=== PATIENT | male | born 1995 | race Caucasian/White ===

== ENCOUNTER → 2020-06-02 11:15 | Outpatient (CLI) | payer OTHER, SELFPAY | PROVIDERS: PCP Family Medicine; Referring Provider Family Medicine; Visit Provider Family Medicine | DX: Z20.828 Contact with and (suspected) exposure to other viral communicable diseases (principal) | CPT/HCPCS: 87635; U0003 ==

== ENCOUNTER 2021-08-23 09:05 | Outpatient (CLI) | payer OTHER, SELFPAY | END 2021-08-23 23:59 | disposition home or self-care (01) | PROVIDERS: PCP Family Medicine; Visit Provider Nurse Practitioner Family | DX: J06.9 Acute upper respiratory infection, unspecified (principal); Z20.822 Contact with and (suspected) exposure to COVID-19 | CPT/HCPCS: 87635; U0003; U0005 ==

== ENCOUNTER → 2022-05-21 | Outpatient (CLI) | payer OTHER, SELFPAY ==
--- NOTE | 2022-05-21 11:35 | RAD_ITS ---
STUDY: X-RAY CHEST REASON FOR EXAM: Male, 27 years old. Shortness of breath. TECHNIQUE: Frontal and lateral views of the chest. COMPARISON: None. FINDINGS: Low volume inspiration. Blunting of both costophrenic angles, left greater than right which may represent small effusions or pleural thickening. Normal size heart. Normal mediastinum and carlos. Normal visualized pulmonary arteries. Normal visualized aortic arch and descending thoracic aorta. Normal visualized thoracic spine. Normal visualized ribs, clavicles, and shoulders. There is no demonstrated abnormality of the visualized soft tissue structures of the upper abdomen. RAD/Chest PA and Lateral IMPRESSION: Low volume inspiration with probable small bilateral pleural effusions, left greater than right. No acute abnormality or active cardiopulmonary disease. Electronically Signed: Nelson Ohara, at 12:48 EST ,
[2022-05-21 12:19] LABS: Absolute Lymphocyte Count 1.37 X10^3/uL (0.83-4.51); Absolute Neutrophil Count 6.7 X10^3/uL (2.0-7.7); Basophil# 0.04 X10^3/uL; Basophil% 0.4 % (0-1); Eosinophil# 0.51 X10^3/uL; Eosinophils% 5.4 % (0-5); Hematocrit 42.6 % (40-54); Hemoglobin 14.3 g/dL (13.0-16.5); Lymphocyte # 1.37 X10^3/ul (0.83-4.51); Lymphocyte % 14.5 % (19-41); Mean Corp Hgb Conc 33.6 g/dL (32-36); Mean Corpuscular Hgb 29.7 pg (27.0-32.0); Mean Corpuscular Volume 88.4 fL (80-94); Monocyte# 0.77 X10^3/uL; Monocyte% 8.2 % (0-10); NRBC Flagged by Analyzer 0 % (0-5); Neutrophil # 6.67 X10^3/uL (2.7-7.7); Neutrophil % 70.9 % (47-70); Platelet Count 339 K/mm3 (150-450); RBC Distribution Width CV 12.2 % (11.6-14.6); RBC Distribution Width SD 39.7 fl (35.1-43.9); Red Blood Count 4.82 M/mm3 (4.6-6.2); White Blood Count 9.4 K/mm3 (4.4-11.0)
[2022-05-21 12:50] LABS: Anion Gap 7 (5-15); BUN 17 mg/dL (7-18); BUN/Creat Ratio 20.7 RATIO (10-20); Calcium,Total 9.3 mg/dL (8.5-10.1); Chloride 104 mmol/L (98-107); Creatinine, Serum 0.82 mg/dL (0.70-1.30); EST Glomerular Filtration Rate 118 mL/min (>60); Est Glom Filt Rate - Afr Amer 143 mL/min (>60); Glucose 92 mg/dL (74-106); Potassium 3.8 mmol/L (3.5-5.1); Sodium Level 139 mmol/L (136-145)
[2022-05-21 13:35] LABS: D-Dimer Quantitative (DVT/PE) 6.95 FEU/ug/m (0.27-0.49)
== END | disposition home or self-care (01) ==
LOC: MFPLAB 11:23 → MTRAD 11:35
PROVIDERS: PCP Family Medicine; Referring Provider Family Medicine; Visit Provider Family Medicine
DX: R06.02 Shortness of breath (principal)
CPT/HCPCS: 36415; 71046; 80048; 85025; 85379

== ENCOUNTER → 2022-05-21 | Outpatient (CLI) | payer OTHER, SELFPAY ==
--- NOTE | 2022-05-21 16:38 | CT_ITS ---
STUDY: CTA CHEST REASON FOR EXAM: Male, 27 years old. ELEVATED D DIMER RADIATION DOSAGE (If Supplied By Facility): CTDIvol = ( 14.86 ) mGy, DLP = ( 467.37 ) mGycm TECHNIQUE: The examination was performed with the intravenous administration of IV 100mL Isovue-[id number]. Post-processing of the angiographic images was performed, with multiplanar reformation and 3D reconstruction. Individualized dose optimization techniques were used for this CT. COMPARISON: Chest radiograph of the same date, 05/21/2022 FINDINGS: Tubes and lines: 1. No life-support noted. CTA: PULMONARY ARTERIES: There is normal configuration and contrast opacification of pulmonary outflow tract, main pulmonary arteries, segmental and intersegmental pulmonary arteries bilaterally without evidence of intraluminal filling defects. AORTIC ARCH: The aortic arch and descending aorta have normal configuration. No evidence of dissection or aneurysmal dilatation. Bovine origin of the carotid vessels. HEART: Cardiac contour is normal. No evidence pericardial effusion. CT CHEST: LUNGS: [Bibasilar atelectasis, areas of airspace consolidation in posterior costophrenic sulcus bilaterally, and bilateral effusions noted. Remaining pulmonary parenchyma is well aerated and clear. PLEURAL SPACES: Bilateral pleural fluid collections.. MEDIASTINUM AND LYMPH NODES: Unremarkable. No significant adenopathy. BONES: Unremarkable ABDOMEN: Within normal limits. Other: None IMPRESSIONS: 1. No CTA evidence of pulmonary embolism. 2. No CTA evidence of aortic aneurysm or dissection 3. Normal CT appearance of the heart and pericardium. 4. Bibasilar atelectasis, areas of airspace consolidation in posterior costophrenic sulcus bilaterally. Bilateral effusions noted. Electronically Signed: Unruly Jonas MD at 17:37 EST , CT/CTA Chest W/WO Contrast IMPRESSION: undefined
== END | disposition home or self-care (01) ==
PROVIDERS: PCP Family Medicine; Referring Provider Family Medicine; Visit Provider Family Medicine
DX: R79.89 Other specified abnormal findings of blood chemistry (principal)
CPT/HCPCS: 71275; Q9967; A4216

== ENCOUNTER → 2022-05-23 | Outpatient (CLI) | payer OTHER, SELFPAY ==
--- NOTE | 2022-05-23 15:07 | RAD_ITS ---
EXAM: XR CHEST, 2 VIEWS CLINICAL INDICATION: pleural effusion TECHNIQUE: Frontal and lateral views of the chest. This report was created using [employer] report generation technology. COMPARISON: 05/21/2022 FINDINGS: LUNGS AND PLEURAL SPACES: Blunting of the costophrenic angles which may represent small effusions. No pneumothorax. HEART: Unremarkable. Cardiac silhouette not enlarged. MEDIASTINUM: Central airways and mediastinal contour are unremarkable. BONES/JOINTS: See above. SOFT TISSUES: Unremarkable. RAD/Chest PA and Lateral IMPRESSION: No change in the appearance of the chest from reference exam. Electronically Signed: Eber Rodriguez MD at 16:11 EST ,
[2022-05-23 17:53] LABS: Absolute Neutrophil Count 15.9 X10^3/uL (2.0-7.7); Basophil# 0.03 X10^3/uL; Basophil% 0.2 % (0-1); Eosinophil# 0.02 X10^3/uL; Eosinophils% 0.1 % (0-5); Hematocrit 45.1 % (40-54); Hemoglobin 15.4 g/dL (13.0-16.5); Lymphocyte % 5.1 % (19-41); Mean Corp Hgb Conc 34.1 g/dL (32-36); Mean Corpuscular Hgb 29.7 pg (27.0-32.0); Mean Corpuscular Volume 87.1 fL (80-94); Mean Platelet Vol. 10.3 fl (6.2-12.0); Monocyte# 0.56 X10^3/uL; Monocyte% 3.2 % (0-10); NRBC Flagged by Analyzer 0 % (0-5); Neutrophil # 15.93 X10^3/uL (2.7-7.7); Neutrophil % 90.7 % (47-70); Platelet Count 460 K/mm3 (150-450); RBC Distribution Width CV 11.9 % (11.6-14.6); RBC Distribution Width SD 37.9 fl (35.1-43.9); Red Blood Count 5.18 M/mm3 (4.6-6.2); White Blood Count 17.6 K/mm3 (4.4-11.0)
[2022-05-23 18:19] LABS: Anion Gap 8 (5-15); BUN 21 mg/dL (7-18); BUN/Creat Ratio 24.9 RATIO (10-20); Calcium,Total 9.6 mg/dL (8.5-10.1); Chloride 104 mmol/L (98-107); Creatinine, Serum 0.84 mg/dL (0.70-1.30); EST Glomerular Filtration Rate 115 mL/min (>60); Est Glom Filt Rate - Afr Amer 139 mL/min (>60); Glucose 124 mg/dL (74-106); Potassium 4.7 mmol/L (3.5-5.1); Sodium Level 138 mmol/L (136-145)
== END | disposition home or self-care (01) ==
LOC: MTLAB 15:06
PROVIDERS: PCP Family Medicine; Referring Provider Family Medicine; Visit Provider Family Medicine
DX: J18.9 Pneumonia, unspecified organism (principal)
CPT/HCPCS: 36415; 71046; 80048; 85025

== ENCOUNTER → 2022-05-28 | Outpatient (CLI) | payer OTHER, SELFPAY ==
--- NOTE | 2022-05-28 15:03 | ECHOL_ITS ---
Reason For Study: CHEST PAIN Procedure This was a limited 2D transthoracic echocardiogram. Exam performed in department. Left Ventricle Normal LV size. Left ventricular systolic function is normal. The estimated ejection fraction is 55 %. No regional wall motion abnormalities noted. Right Ventricle Normal RV size. Normal systolic function. Atria Normal left atrium. Normal right atrium. Mitral Valve Normal mitral valve. Tricuspid Valve Normal tricuspid valve. Mild (1+) tricuspid valve insufficiency. Pulmonary artery systolic pressure is 25 mmHg. Aortic Valve Trisinus/trileaflet aortic valve. Pulmonic Valve Normal pulmonic valve. Great Vessels Normal aortic root. The pulmonary artery is normal size. Normal inferior vena cava. Pericardium/Pleural No pericardial effusion. MMode/2D Measurements & Calculations LVIDd: 4.7 cm IVSd: 0.81 cm Ao root diam: 3.2 cm LVIDs: 3.3 cm LVPWd: 0.67 cm RVDd: 3.4 cm FS: 28.6 % LAV(MOD-sp4): 25.0 ml LVAd ap4: 36.9 cm2 SV(MOD-sp4): 72.2 ml LVLd ap4: 9.2 cm EDV(MOD-sp4): 121.1 ml EDV(sp4-el): 125.8 ml LVAs ap4: 21.3 cm2 LVLs ap4: 7.7 cm ESV(MOD-sp4): 48.9 ml ESV(sp4-el): 50.1 ml EF(MOD-sp4): 59.6 % EF(sp4-el): 60.2 % SV(sp4-el): 75.7 ml LA A4 area: 12.2 cm2 LA dimension(2D): 3.6 cm RA A4 area: 11.9 cm2 Doppler Measurements & Calculations PA V2 max: 108.0 cm/sec TR max harjit: 237.8 cm/sec TR max P.6 mmHg ECHO/Echo, Limited Study Interpretation Summary Normal LV size. Left ventricular systolic function is normal. The estimated ejection fraction is 55 %. Pulmonary artery systolic pressure is 25 mmHg. Ordering Physician: Primo Victoria Referring Physician: Primo Victoria Performed By: Yary Moran RDCS
== END | disposition home or self-care (01) ==
LOC: CVS 15:02
PROVIDERS: PCP Family Medicine; Referring Provider Family Medicine; Visit Provider Family Medicine
DX: R07.9 Chest pain, unspecified (principal)
CPT/HCPCS: 93308

== ENCOUNTER → 2023-08-26 | Outpatient (CLI) | payer OTHER, SELFPAY ==
[2023-08-26 17:45] LABS: Absolute Lymphocyte Count 1.71 X10^3/uL (0.83-4.51); Absolute Neutrophil Count 4.6 X10^3/uL (2.0-7.7); Basophil# 0.03 X10^3/uL; Basophil% 0.4 % (0-1); Eosinophil# 0.27 X10^3/uL; Eosinophils% 3.8 % (0-5); Hematocrit 41.6 % (40-54); Hemoglobin 14.2 g/dL (13.0-16.5); Lymphocyte # 1.71 X10^3/ul (0.83-4.51); Lymphocyte % 23.9 % (19-41); Mean Corp Hgb Conc 34.1 g/dL (32-36); Mean Corpuscular Hgb 30.1 pg (27.0-32.0); Mean Corpuscular Volume 88.3 fL (80-94); Mean Platelet Vol. 10.6 fl (6.2-12.0); Monocyte# 0.49 X10^3/uL; Monocyte% 6.9 % (0-10); NRBC Flagged by Analyzer 0 % (0-5); Neutrophil # 4.63 X10^3/uL (2.7-7.7); Neutrophil % 64.7 % (47-70); Platelet Count 263 K/mm3 (150-450); RBC Distribution Width CV 13.1 % (11.6-14.6); RBC Distribution Width SD 42.3 fl (35.1-43.9); Red Blood Count 4.71 M/mm3 (4.6-6.2); White Blood Count 7.2 K/mm3 (4.4-11.0)
[2023-08-26 18:20] LABS: ALB/GLOB Ratio 1.5 RATIO (0.9-2.4); AST(SGOT) 16 U/L (15-37); Alanine Aminotransfer ALT/SGPT 36 U/L (16-61); Albumin, Serum 4.4 g/dL (3.2-5.0); Alkaline Phosphatase 60 U/L (45-117); Anion Gap 4 (5-15); BUN 11 mg/dL (7-18); BUN/Creat Ratio 11.6 RATIO (10-20); Calcium,Total 9.2 mg/dL (8.5-10.1); Chloride 106 mmol/L (98-107); Creatinine, Serum 0.95 mg/dL (0.70-1.30); EST Glomerular Filtration Rate 99 mL/min (>60); Est Glom Filt Rate - Afr Amer 120 mL/min (>60); Glucose 94 mg/dL (74-106); Potassium 3.9 mmol/L (3.5-5.1); Protein, Total 7.4 g/dL (6.4-8.2); Sodium Level 139 mmol/L (136-145); Thyroid Stim Hormone (TSH) 1.32 uIU/mL (0.358-3.74)
--- OUTSIDE RECORDS SUMMARY | 2023-08-26 23:40 | XMS RPT_ITS | CCD ---
Author Name Unknown Address [address] [place] [address] Organization [facility] Care Team Providers Care Draw Fire Operator Name Role Phone Jhonatan Victoria MD Primary Care Provider [phone] JHONATAN VICTORIA Primary Care Unavailable BRIT ZAMBRANO Attending Unavailable JHONATAN VICTORIA Primary Care Unavailable JHONATAN VICTORIA Primary Care Unavailable BRIT ZAMBRANO Attending Unavailable Jhonatan Victoria MD Primary Care Provider Medications Current Medications Medication Drug Class(es) Dates Sig (Normalized) Sig (Original) amoxicillin 875 mg oral tablet (1 source) Penicillin-class Antibacterial Start: 07-05-2022 End: 07-15-2022 take 1 tablet by mouth twice daily amoxicillin (AMOXIL) 875 mg tablet Indications: Strep throat Take 1 tablet by mouth twice daily for 10 days. 20 tablet 0 07/05/2022 07/15/2022 Active Completed/Discontinued Medications Medication Drug Class(es) Dates Sig (Normalized) Sig (Original) acetaminophen 325 mg oral tablet (2 sources) Start: 11-04-2006 acetaminophen (TYLENOL) 325 mg ORAL Tab 1-2 tablets as needed for headaches 0 11/04/2006 Active Problems Active Problems Problem Classification Problem Date Documented Da te Episodic/Chronic Allergic reactions (2 sources) Unspecified contact dermatitis, unspecified cause; Translations: [Contact dermatitis] Onset: 11-30-2022 Episodic Other and unspecified benign neoplasm (2 sources) Benign neoplasm of brain; Translations: [Benign neoplasm of brain, unspecified] Onset: 12-08-2007 12-08-2007 Chronic Other upper respiratory infections (2 sources) Chronic sphenoidal sinusitis; Translations: [Chronic sphenoidal sinusitis] Onset: 03-06-2007 03-06-2007 Chronic Past or Other Problems Problem Classification Problem Date Documented Date Episodic/Chronic Other upper respiratory infections (3 sources) Streptococcal sore throat; Translations: [Streptococcal pharyngitis] Onset: 04-06-2022 Episodic Results Test Name Value Interpretation Reference Range Facil ity Vital Signs Date Time Vital Sign Value Performing Clinician Suma samuel 11-30-2022 18:25-0400 Body temperature 97.9 [degF] Brit Zambrano MD Work Phone: [facility] 11-30-2022 18:25-0400 Body weight 95.25 kg Brit Zambrano MD Work Phone: [facility] 11-30-2022 18:25-0400 Diastolic blood pressure 70 mm[Hg] Brit Zambrano MD Work Phone: [facility] 11-30-2022 18:25-0400 Heart rate 65 /min Brit Zambrano MD Work Phone: [facility] 11-30-2022 18:25-0400 Respiratory rate 20 /min Brit Zambrano MD Work Phone: [facility] 11-30-2022 18:25-0400 SaO2% (BldA) [Mass fraction] 98 % Brit Zambrano MD Work Phone: [facility] 11-30-2022 18:25-0400 Systolic blood pressure 127 mm[Hg] Brit Zambrano MD Work Phone: [facility] 07-05-2022 19:17-0500 Body temperature 98.8 [degF] Nita Balderrama DO Work Phone: [facility] 07-05-2022 19:17-0500 Body weight 99.79 kg Nita Tacos DO Work Phone: [facility] 07-05-2022 19:17-0500 Diastolic blood pressure 85 mm[Hg] Nita Balderrama DO Work Phone: [facility] 07-05-2022 19:17-0500 Heart rate 78 /min Nita Balderrama DO Work Phone: [facility] 07-05-2022 19:17-0500 Respiratory rate 18 /min Nita Balderrama DO Work Phone: [facility] 07-05-2022 19:17-0500 SaO2% (BldA) [Mass fraction] 99 % Nita Balderrama DO Work Phone: [facility] 07-05-2022 19:17-0500 Systolic blood pressure 142 mm[Hg] Nita Balderrama DO Work Phone: [facility] Encounters Encounter Date Encounter Type Care Provider Facility Start: 11-30-2022 End: 11-30-2022 ambulatory JHONATAN Soni [facility] Facility:[id number] Start: 11-30-2022 End: 11-30-2022 Office outpatient visit 15 minutes Brit Zambrano MD Work Phone: [facility] Plan of Treatment Date Care Activity Detail Author Start: 03-01-2023 Influenza vaccination INFLUENZA (Sea son Ended) [facility] Start: 07-01-2022 DEPRESSION ASSESSMENT DEPRESSION ASS ESSMENT [facility] Start: 03-01-2022 Influenza vaccination INFLUENZA (#1) [facility] Start: 01-12-2021 COVID-19 VACCINE (3 - Booster for Moderna series) COVID-19 VACCINE (3 - Booster for Moderna series) [facility] Start: 2013 Urine microalbumin profile DTAP,TDAP ,TD (1 - Tdap) [facility] Start: 01-06-2012 HEPATITIS C SCREENING HEPATITIS C CHARISMA [place] [facility] Start: 01-06-2012 HIV SCREENING HIV SCREENING [facility] Start: 1994 HEPATITIS B (1 of 3 - 3-dose series) HEPATITIS B (1 of 3 - 3-dose series) [facility] Payers Date Payer Category Payer Unknown [employer] P[employer] [id number] 2022-Present [phone] [address] [place] [address] PPO [id number] 2022 Unknown [id number] Social History Date Type Detail Facility Start: 04-06-2022 Tobacco smoking stat us ARIS Never smoked tobacco [facility] Start: 04-06-2022 Tobacco use and exposure Smoke less tobacco non-user [facility] Start: 07-05-2022 End: 11-30-2022 Alcohol intake Current non-drinker of alcohol (finding) [facility] Start: 1995 Sex Assigned At Not on file [facility] Progress note 11-30-2022 Note Date & Type Note Facility 11-30-2022 Note HNO ID: [id number] Author: Brit Zambrano MD Service: ? Author Type: Physician Type: Progress Notes Filed: 11/30/2022 6:41 PM Note Text: Darlene Delgado is a 27 year old MALE who presents with Rash (On feet/ankles x 4 days) 27 years old male present with rash on both lower leg and foot for the last 4 days Denies being exposed to anything new. No new detergent socks or shoes or any clothing Did not go into the schneider working the yard He has moderate itching, he has been using qbat-klp-jsbwsbz cortisone cream which is slightly helping No rash anywhere else No other problem at this visit History reviewed. No pertinent past medical history. ACTIVE PROBLEM LIST Chronic Sphenoidal Sinusitis Benign Neoplasm of Brain (Hcc) Current Outpatient Medications Medication Sig Dispense Refill amitriptyline (ELAVIL) 50 mg tablet TAKE 1 TABLET BY MOUTH AT BEDTIME TO PREVENT HEADACHES FLUoxetine (PROZAC) 20 mg capsule TAKE 1 (ONE) CAPSULE BY MOUTH DAILY 90 capsule 3 MOMETASONE 50 MCG/ACTUATION NASAL SPRAY [place] twice in each nostril once daily. 0 acetaminophen (TYLENOL) 325 mg ORAL Tab 1-2 tablets as needed for headaches 0 No current facility-administered medications for this visit. Social History Tobacco Use Smoking status: Never Smokeless tobacco: Never Vaping Use Vaping Use: Never used Substance Use Topics Alcohol use: No Drug use: Never Alcohol Use: No Tobacco Use: Never History reviewed. No pertinent family history. Review of Systems Skin: Positive for itching and rash. All other systems reviewed and are negative. BP 127/70 Pulse 65 Temp 97.9 Resp 20 Wt 210 lb (95.3kg) SpO2 98% Physical Exam Vitals reviewed. Constitutional: General: He is not in acute distress. Appearance: Normal appearance. He is not ill-appearing or toxic-appearing. HENT: Nose: Nose normal. Mouth/Throat: Mouth: Mucous membranes are moist. Pharynx: Oropharynx is clear. Cardiovascular: Rate and Rhythm: Normal rate and regular rhythm. Heart sounds: Normal heart sounds. Pulmonary: Effort: Pulmonary effort is normal. Breath sounds: Normal breath sounds. Skin: Findings: Erythema and rash present. Comments: Had a tiny erythematous dots on both lower extremities from mid leg down to the foot No blisters or pustules no skin excoriation speedy on pressure. Clinically appears to be very nonspecific rash Nontender. Neurological: Mental Status: He is alert. ASSESSMENT/PLAN: 1. Contact dermatitis, unspecified contact dermatitis type, unspecified trigger - ICD9: 692.9, ICD10: L25.9 - METHYLPREDNISOLONE 4 MG TABLETS IN A DOSE PACK Benadryl, may continue desq-ylt-vgzfela cortisone cream F/u PCP for evaluation and care or see microelectronics engineer Explained details Brit Zambrano MD [facility] Instructions 11-30-2022 Patient Instructions Note Date & Type Note Facility 11-30-2022 Instructions Brit Zambrano MD - 11/30/2022 6:40 PM EDT Benadryl, may continue svcp-khi-xdwmjqt cortisone cream F/u PCP for evaluation and care or see microelectronics engineer Explained details documented in this encounter [facility] History of Present illness Narrative 11-30-2022 Brit Zambrano MD - 11/30/2022 6:34 PM EDT Note Date & Type Note Facility 11-30-2022 History of Presen t illness Narrative Darlene Delgado is a 27 year old MALE who presents with Rash (On feet/ankles x 4 days) 27 years old male present with rash on both lower leg and foot for the last 4 days Denies being exposed to anything new. No new detergent socks or shoes or any clothing Did not go into the schneider working the yard He has moderate itching, he has been using fjxh-eos-didtfwk cortisone cream which is slightly helping No rash anywhere else No other problem at this visit History reviewed. No pertinent past medical history. ACTIVE PROBLEM LIST Chronic Sphenoidal Sinusitis Benign Neoplasm of Brain (Hcc) Current Outpatient Medications Medication Sig Dispense Refill amitriptyline (ELAVIL) 50 mg tablet TAKE 1 TABLET BY MOUTH AT BEDTIME TO PREVENT HEADACHES FLUoxetine (PROZAC) 20 mg capsule TAKE 1 (ONE) CAPSULE BY MOUTH DAILY 90 capsule 3 MOMETASONE 50 MCG/ACTUATION NASAL SPRAY [place] twice in each nostril once daily. 0 acetaminophen (TYLENOL) 325 mg ORAL Tab 1-2 tablets as needed for headaches 0 No current facility-administered medications for this visit. Social History Tobacco Use Smoking status: Never Smokeless tobacco: Never Vaping Use Vaping Use: Never used Substance Use Topics Alcohol use: No Drug use: Never Alcohol Use: No Tobacco Use: Never History reviewed. No pertinent family history. Review of Systems Skin: Positive for itching and rash. All other systems reviewed and are negative. BP 127/70 Pulse 65 Temp 97.9 Resp 20 Wt 210 lb (95.3kg) SpO2 98% Physical Exam Vitals reviewed. Constitutional: General: He is not in acute distress. Appearance: Normal appearance. He is not ill-appearing or toxic-appearing. HENT: Nose: Nose normal. Mouth/Throat: Mouth: Mucous membranes are moist. Pharynx: Oropharynx is clear. Cardiovascular: Rate and Rhythm: Normal rate and regular rhythm. Heart sounds: Normal heart sounds. Pulmonary: Effort: Pulmonary effort is normal. Breath sounds: Normal breath sounds. Skin: Findings: Erythema and rash present. Comments: Had a tiny erythematous dots on both lower extremities from mid leg down to the foot No blisters or pustules no skin excoriation speedy on pressure. Clinically appears to be very nonspecific rash Nontender. Neurological: Mental Status: He is alert. ASSESSMENT/PLAN: 1. Contact dermatitis, unspecified contact dermatitis type, unspecified trigger - ICD9: 692.9, ICD10: L25.9 - METHYLPREDNISOLONE 4 MG TABLETS IN A DOSE PACK Benadryl, may continue qevw-top-rrbgpsw cortisone cream F/u PCP for evaluation and care or see microelectronics engineer Explained details Pratheep Pawa, MD documented in this encounter [facility] Progress note 07-05-2022 Note Date & Type Note Facility 07-05-2022 Note HNO ID: [id number] Author: Nita Balderrama, DO Service: ? Author Type: Physician Type: Progress Notes Filed: 07/05/2022 8:00 PM Note Text: Darlene Delgado is a 27 year old MALE who presents with Cough and Sore Throat (6 days) HPI History reviewed. No pertinent past medical history. ACTIVE PROBLEM LIST Chronic Sphenoidal Sinusitis Benign Neoplasm of Brain (Hcc) Current Outpatient Medications Medication Sig Dispense Refill amoxicillin (AMOXIL) 875 mg tablet Take 1 tablet by mouth twice daily for 10 days. 20 tablet 0 FLUoxetine (PROZAC) 20 mg capsule TAKE 1 (ONE) CAPSULE BY MOUTH DAILY 90 capsule 3 AMITRIPTYLINE 25 MG TAB three by mouth at bedtime 0 MOMETASONE 50 MCG/ACTUATION NASAL SPRAY [place] twice in each nostril once daily. 0 acetaminophen (TYLENOL) 325 mg ORAL Tab 1-2 tablets as needed for headaches 0 No current facility-administered medications for this visit. Social History Tobacco Use Smoking status: Never Smokeless tobacco: Never Vaping Use Vaping Use: Never used Substance Use Topics Alcohol use: No Drug use: Never Alcohol Use: No Tobacco Use: Never History reviewed. No pertinent family history. Review of Systems HENT: Positive for sore throat. All other systems reviewed and are negative. BP 142/85 Pulse 78 Temp 98.8 Resp 18 Wt 220 lb (99.8kg) SpO2 99% Physical Exam Vitals and nursing note reviewed. Constitutional: Appearance: Normal appearance. HENT: Nose: Congestion and rhinorrhea present. Mouth/Throat: Pharynx: Oropharyngeal exudate and posterior oropharyngeal erythema present. Cardiovascular: Rate and Rhythm: Normal rate and regular rhythm. Pulses: Normal pulses. Heart sounds: Normal heart sounds. Pulmonary: Effort: Pulmonary effort is normal. Breath sounds: Normal breath sounds. Skin: General: Skin is warm. Capillary Refill: Capillary refill takes less than 2 seconds. Neurological: General: No focal deficit present. Mental Status: He is alert. ASSESSMENT/PLAN: 1. Strep throat - ICD9: 034.0, ICD10: J02.0 - suspect strep - Discussed supportive care treatment with fluids, rest and analgesia. - AMOXICILLIN 875 MG TABLET Nita Mireille DubonBalderrama [facility] History of Present illness Narrative 07-05-2022 Nita DiasDO gisel - 07/05/2022 7:58 PM EST Note Date & Type Note Facility 07-05-2022 History of Presen t illness Narrative Darlene Delgado is a 27 year old MALE who presents with Cough and Sore Throat (6 days) HPI History reviewed. No pertinent past medical history. ACTIVE PROBLEM LIST Chronic Sphenoidal Sinusitis Benign Neoplasm of Brain (Hcc) Current Outpatient Medications Medication Sig Dispense Refill amoxicillin (AMOXIL) 875 mg tablet Take 1 tablet by mouth twice daily for 10 days. 20 tablet 0 FLUoxetine (PROZAC) 20 mg capsule TAKE 1 (ONE) CAPSULE BY MOUTH DAILY 90 capsule 3 AMITRIPTYLINE 25 MG TAB three by mouth at bedtime 0 MOMETASONE 50 MCG/ACTUATION NASAL SPRAY [place] twice in each nostril once daily. 0 acetaminophen (TYLENOL) 325 mg ORAL Tab 1-2 tablets as needed for headaches 0 No current facility-administered medications for this visit. Social History Tobacco Use Smoking status: Never Smokeless tobacco: Never Vaping Use Vaping Use: Never used Substance Use Topics Alcohol use: No Drug use: Never Alcohol Use: No Tobacco Use: Never History reviewed. No pertinent family history. Review of Systems HENT: Positive for sore throat. All other systems reviewed and are negative. BP 142/85 Pulse 78 Temp 98.8 Resp 18 Wt 220 lb (99.8kg) SpO2 99% Physical Exam Vitals and nursing note reviewed. Constitutional: Appearance: Normal appearance. HENT: Nose: Congestion and rhinorrhea present. Mouth/Throat: Pharynx: Oropharyngeal exudate and posterior oropharyngeal erythema present. Cardiovascular: Rate and Rhythm: Normal rate and regular rhythm. Pulses: Normal pulses. Heart sounds: Normal heart sounds. Pulmonary: Effort: Pulmonary effort is normal. Breath sounds: Normal breath sounds. Skin: General: Skin is warm. Capillary Refill: Capillary refill takes less than 2 seconds. Neurological: General: No focal deficit present. Mental Status: He is alert. ASSESSMENT/PLAN: 1. Strep throat - ICD9: 034.0, ICD10: J02.0 - suspect strep - Discussed supportive care treatment with fluids, rest and analgesia. - AMOXICILLIN 875 MG TABLET Nita Balderrama documented in this encounter [facility] Progress note 04-06-2022 Note Date & Type Note Facility 04-06-2022 Note HNO ID: [id number] Author: Brit Zambrano MD Service: ? Author Type: Physician Type: Progress Notes Filed: 04/06/2022 6:22 PM Note Text: Darlene Delgado is a 27 year old MALE who presents with Cough and Sore Throat (4 days) Cough congestion sinus pressure headache for the last 5 days Symptom increasing, also having sore throat Feel lots of drainage Flhw-hjd-ddfhckw medicine is not helping Sometimes feels some discomfort in the chest No vomiting or diarrhea History reviewed. No pertinent past medical history. ACTIVE PROBLEM LIST Chronic Sphenoidal Sinusitis Benign Neoplasm of Brain (Hcc) Current Outpatient Medications Medication Sig Dispense Refill AMITRIPTYLINE 25 MG TAB three by mouth at bedtime 0 MOMETASONE 50 MCG/ACTUATION NASAL SPRAY [place] twice in each nostril once daily. 0 olopatadine (PATANOL) 0.1 % OPHTHALMIC Drop 1 drop twice daily as needed 0 acetaminophen (TYLENOL) 325 mg ORAL Tab 1-2 tablets as needed for headaches 0 FLUoxetine (PROZAC) 20 mg capsule TAKE 1 (ONE) CAPSULE BY MOUTH DAILY 90 capsule 3 amitriptyline (ELAVIL) 50 mg tablet TAKE 1 TABLET AT BEDTIME TO PREVENT HEADACHES 90 tablet 3 No current facility-administered medications for this visit. Social History Tobacco Use Smoking status: Never Smokeless tobacco: Never Vaping Use Vaping Use: Never used Substance Use Topics Alcohol use: No Drug use: Never Alcohol Use: No Tobacco Use: Never History reviewed. No pertinent family history. Review of Systems Constitutional: Negative. HENT: Positive for congestion, sinus pain and sore throat. Eyes: Negative. Respiratory: Positive for cough. Cardiovascular: Negative. Gastrointestinal: Negative. BP 140/73 Pulse 94 Temp 99.4 Resp 18 Wt 220 lb (99.8kg) SpO2 98% Physical Exam Vitals reviewed. Constitutional: General: He is not in acute distress. Appearance: Normal appearance. He is not ill-appearing or toxic-appearing. Comments: Looked tired HENT: Nose: Congestion present. Comments: Moderate paranasal sinuses tenderness Mouth/Throat: Mouth: Mucous membranes are moist. Pharynx: Oropharynx is clear. Comments: Moderate postnasal drip Cardiovascular: Rate and Rhythm: Normal rate and regular rhythm. Heart sounds: Normal heart sounds. Pulmonary: Effort: Pulmonary effort is normal. Breath sounds: Normal breath sounds. Musculoskeletal: Cervical back: Normal range of motion and neck supple. No rigidity. Lymphadenopathy: Cervical: No cervical adenopathy. Neurological: Mental Status: He is alert. ASSESSMENT/PLAN: 1. Acute maxillary sinusitis, recurrence not specified - ICD9: 461.0, ICD10: J01.00 Gargle, lozenges OTC med as needed Recheck if any change F/u PCP for further evaluation and care explained details Brit Zambrano MD [facility] Evaluation note Note Date & Type Note Facility documented in this encounter [facility] Evaluation note Note Date & Type Note Facility documented in this encounter [facility] Summary Purpose Family History No Family History Records FoundNo Family History Records FoundNo Family History Records Found Advance Directives No Advanced Directives Records FoundNo Advanced Directives Records FoundNo Advanced Directives Records Found Additional Source Comments (unrecognized sect ion and content) No Status Records FoundNo Status Records FoundNo Status Records Found INFORMATION SOURCE (unrecogn ized section and content) DATE CREATED AUTHOR AUTHOR'S ORGANIZ ATION 12/08/2022 [facility] DATE CREATED AUTHOR AUTHOR'S ORGANIZ ATION 12/08/2022 [facility] Source Comments (unrecognize d section and content) In the event this informatio n is protected by the Federal Confidentiality of Alcohol and Drug Abuse Patient Records regulations: The Federal rules restrict any use of the information to criminally investigate or prosecute any alcohol or drug abuse patient.[facility] the event this information is protected by the Federal Confidentiality of Alcohol and Drug Abuse Patient Records regulations: The Federal rules restrict any use of the information to criminally investigate or prosecute any alcohol or drug abuse patient.[facility] Reason for Visit (unrecogniz ed section and content) Reason Comments Rash On feet/ankles x 4 d ays Care Teams (unrecognized sec tion and content) Draw Fire Operator Relationship Specialty Start Date End Date Jhonatan Victoria MD PCP - General 09/19/09 FOR RECORDS PERTAINING TO PATIENTS WHO ARE OR HAVE BEEN ENROLLED IN A CHEMICAL DEPENDENCY/SUBSTANCEABUSE PROGRAM, SOME INFORMATION MAY BE OMITTED. This clinical summary was aggregated from multiple sources. Caution should be exercised in using it in the provision of clinical care. This summary normalizes information from multiple sources, and as a consequence, information in this document may materially change the coding, format and clinical context of patient data. In addition, data may be omitted in some cases. CLINICAL DECISIONS SHOULD BE BASED ON THE PRIMARY CLINICAL RECORDS. [employer] [facility] provides no warranty or guarantee of the accuracy or completeness of information in this document.
== END | disposition home or self-care (01) ==
LOC: MFPLAB 15:36
PROVIDERS: PCP Family Medicine; Visit Provider Family Medicine
DX: N46.9 Male infertility, unspecified (principal)
CPT/HCPCS: 36415; 80053; 84403; 84443; 85025

== ENCOUNTER → 2024-09-07 | Outpatient (CLI) | payer OTHER, SELFPAY ==
[2024-09-07 13:29] LABS: Alanine Aminotransfer ALT/SGPT 22 U/L (<=46); Creatinine, Serum 0.99 mg/dL (0.70-1.20); EST Glomerular Filtration Rate 105 (>60)
[2024-09-07 13:32] LABS: Cholesterol 197 mg/dL (<=200); High Density Lipoprotein 43 mg/dL
== END | disposition home or self-care (01) ==
LOC: MFPLAB 10:28
PROVIDERS: PCP Family Medicine; Visit Provider Family Medicine
DX: Z13.220 Encounter for screening for lipoid disorders (principal)
CPT/HCPCS: 36415; 82465; 82565; 83718; 84460